=== PATIENT | female | born 1995 ===

== ENCOUNTER → 2023-06-30 12:22 | Outpatient (BNVA) | payer OTHER, SELFPAY | PROVIDERS: Visit Provider Emergency Medicine | DX: S82.432A Displaced oblique fracture of shaft of left fibula, initial encounter for closed fracture (principal); S82.231A Displaced oblique fracture of shaft of right tibia, initial encounter for closed fracture; X58.XXXA Exposure to other specified factors, initial encounter | CPT/HCPCS: 73590; 73610 ==

== ENCOUNTER 2023-07-03 15:46 | Observation (INO) | payer OTHER, SELFPAY ==
[2023-07-02 16:24] VITALS: BMI 31.3
[2023-07-03] VITALS (16 sets, daily range): BP systolic 120–158; BP diastolic 67–102; PULSE 76–110; RESP 16–19; TEMP 36.2–37.2; O2SAT 92–98
--- NOTE | 2023-07-03 | XR_ITS ---
WS: [id number] INTRAOPERATIVE TECHNIQUE: 8 Spot fluoroscopic images for intraoperative purposes. FLUOROSCOPY TIME: 167 seconds CLINICAL INFORMATION: hardware placement COMPARISON: None. FINDINGS: Intramedullary kelly and screw fixation of the tibia with distal tibial fixation screws. Plate and scre w fixation lateral fibula. IMPRESSION: Images obtained for intraoperative purposes.
[2023-07-03] MEDS: sodium chloride 0.9% 1,000 ML 30 ML IV (08:52)
[2023-07-03 08:59] LABS: OR HCG Qualitative Urine Negative (Negative)
--- NOTE | 2023-07-03 09:33 | W.PM.OPSUD ---
Surgery/Procedure H&P Update DATE OF PROCEDURE: July 03, 2023 DATE H&P PERFORMED: 07/02/23 H&P UPDATE INFORMATION: I have reviewed H&P completed within last 30 days, I have examined patient prior to procedure and No changes to prior documentation PLANNED PROCEDURE: Operation Date: 07/03/23 09:50 Proposed Procedures p 13630: intramedullary Nail in Tibia, S82.209A - Unspecified fracture of shaft of unspecified tibia, initial encounter for closed fracture(Left) - [place] [address]: ORIF fibula, S82.409A(Left) - Randolph Garcia DO
[2023-07-03] MEDS: HYDROmorphone 1 mg/mL INJ 1 mL 0.5 MG IVP ×2 (09:49→16:20)
[2023-07-03] MEDS: ceFAZolin 2,000 MG in sodium chloride 0.9% (plus) 50 ML 100 MG IV ×2 (10:01→17:32)
--- NOTE | 2023-07-03 10:07 | ANES.PREANE2 ---
Pre-Anesthetic Assessment Height/Weight: Height 1.75 m Weight 96.162 kg Temp Pulse Resp BP Pulse Ox O2 Del Method 97.7 F 105 H 18 149/90 98 Room Air 07/03/23 08:39 07/03/23 08:39 07/03/23 09:49 07/03/23 08:39 07/03/23 09:49 07/03/23 08:39 Operation Date: 07/03/23 09:50 Proposed Procedures p 87469: intramedullary Nail in Tibia, S82.209A - Unspecified fracture of shaft of unspecified tibia, initial encounter for closed fracture(Left) - [place] [address]: ORIF fibula, S82.409A(Left) - Randolph Garcia DO Familial anesthetic complications: none Was Beta Bev taken within 24 hours: N/A Was Clonidine taken within 24 hours: N/A Last intake: Intake Last Liquid Date 07/02/23 Last Liquid Time 20:00 Last Solid Date 07/02/23 Last Solid Time 20:00 Social No alcohol and No tobacco Exam alert, oriented x 3, clear to auscultation bilaterally and regular rate & rhythm Airway Submandibular: within normal limits Cervical ROM: within normal limits Mallampati: Class II Dentition: full Metabolic Morbid Obesity Neuropsych Anxiety Anesthetic Plan ASA status: 2 Anesthesia: General and Regional (specify below) (Discussed pop blk--surgeon did not want) Medications/Allergies Home Medications Medication Instructions Recorded Confirmed Last Taken Type escitalopram oxalate 10 mg tablet 10 mg PO DAILY 06/30/23 07/02/23 07/03/23 06:00 History hydrocodone 5 mg-acetaminophen 325 1 tab PO Q6H PRN pain 7 days #28 06/30/23 07/02/23 07/03/23 02:00 Rx mg tablet tabs norethindrone 1 mg-ethinyl 1 tab PO DAILY 06/30/23 07/02/23 07/02/23 History estradiol 20 mcg (21)-iron 75 mg (7) tablet (11/30 ()) noemi #1 ea 07/02/23 07/02/23 Unknown Rx Allergies Allergy/AdvReac Type Severity Reaction Status Date / Time No Known Allergies Allergy Verified 07/03/23 08:32 Current Medications Generic Name Dose Route Start Last Admin Trade Name Freq PRN Reason Stop Dose Admin Hydromorphone HCl 0.5 mg 07/03/23 08:14 07/03/23 09:49 Hydromorphone 1 Mg/Ml Inj 1 Ml IVP 0.5 mg ONCE PRN Administration For preop pain/anxiety Sodium Chloride 1,000 mls @ 30 mls/hr 07/03/23 08:15 07/03/23 08:52 Sodium Chloride 0.9% IV 07/04/23 08:14 30 mls/hr .Q24H ALONSO Administration Data Anesthesia Cardiac Studies: No Data to Display
--- NOTE | 2023-07-03 12:01 | PM.OP ---
Operative Report Date of procedure: July 03, 2023 Pre-op diagnosis: 1. Right tibia shaft fracture 2. Right distal fibula Post-op diagnosis: same Procedure done: 1. IM nail Right tibia 2. ORIF right distal fibula Surgeon: Randolph Garcia Taxi Proprietor: Manolo Roque Taxi Proprietor: The ophthalmology surgical technician, Manolo Roque, GREG was needed for his expertise with fracture care. He was important and necessary throughout the procedure to complete in a safe and timely manner. He assisted with patient positioning prepping and draping tissue retraction suctioning of the operative field protection of the critical structures and tissue closure Estimated blood loss (mL): 25 Tourniquet time (min): 25 Procedure: 1. IM nail Right tibia 2. ORIF right distal fibula Patient brought the operative suite after undergoing anesthesia was placed in the supine position. Eyes appear well-padded. Patient's right leg was up on a bone foam ramp. Patient leg was prepped and draped normal sterile fashion. Skin incision made proximal to the patella. The quad tendon was split in the opening awl was inserted down through the knee joint down into the starting point for the tibia. A starting pin was inserted in the top of the tibia. The opening reamer was inserted to the top of the tibia. Ball-tipped guidewire was then passed then the fracture was reduced and the tip of the guidewire was passed all the way down to the distal tibia. AP lateral fluoroscopy ensured that the distal tip of the ball tip was in the center position of the distal tibia on AP and lateral fluoroscopy. And that the fracture was reduced. The tibial canal was then reamed to 11-1/2 mm. The canal length was measured it was measured to be roughly 3 to 30 mm 3 and 30 mm x 10 mm nail was inserted 2 locking screws were placed proximally 2 locking screws were placed distally once the nail was locked into position attention was then brought to the fibula. Esmarch was used and the tourniquet was brought up. The skin incision was made on the lateral fibula. The fracture was identified fracture was reduced the distal fibula and then in a anterior to posterior screw lag screw was placed. And then a 7 hole one third tubular plate was placed with 3 screws proximal and 2 screws distal. AP and lateral fluoroscopy ensured that the fibula was reduced and the plate and screws were in good position. AP and lateral fluoroscopy were then used to ensure that the tibia was in good position. As well as the tibial nail. We was then closed in a layered fashion with Vicryl and nylon and osvaldo. Sterile dressings were applied and patient was placed in a posterior splint and transferred to the PACU in stable condition.
--- NOTE | 2023-07-03 13:27 | SUR.PHASEI ---
Addendum entered by Lydia José RN 07/03/23 13:30: this was taken at 1300 Original Note: patient brought in personal prescribed hydrocodone 5-325, one taken after consuming some new crackers and fluids.
--- NOTE | 2023-07-03 14:55 | ANE.PACU2 ---
Inpatient post-anesthesia follow up: Airway intact: Yes Vital signs: Temperature 97.7 F Pulse Rate 77 Respiratory Rate 18 Blood Pressure 131/85 Pulse Oximetry 94 Oxygen Delivery Me thod Room Air Oxygen Flow Rate Fraction of Inspir ed Oxygen Hydration adequate: Yes Nausea and vomiting: No Pain level: 3 Mental status: Baseline
--- NOTE | 2023-07-03 16:18 | SUR.PHASEI ---
16:15 MEDICATED FOR ANKLE PAIN. ROM SENSATION AND GOOD CAP REFILL RIGHT TOES. REPORT GIVEN TO NOE MANTILLA. PT A+0 X 3.
[2023-07-03] MEDS: ondansetron 2 mg/ML SDV 2 mL 4 MG IVP (16:20)
[2023-07-03] MEDS: sodium chloride 0.9% 1,000 ML 80 ML IV (17:32)
[2023-07-03] MEDS: HYDROcodone-acetaminophen 5-325 mg Tablet PO ×2 (18:37→22:54)
[2023-07-04 00:27] VITALS: BP 134/79; PULSE 79; RESP 16; TEMP 36.8; O2SAT 96
[2023-07-04] MEDS: ceFAZolin 2,000 MG in sodium chloride 0.9% (plus) 50 ML 100 MG IV ×2 (02:18→08:21)
[2023-07-04] MEDS: ketorolac 30 mg/mL INJ IVP (02:20)
[2023-07-04] MEDS: HYDROcodone-acetaminophen 5-325 mg Tablet PO ×2 (02:57→08:21)
[2023-07-04] MEDS: sodium chloride 0.9% 1,000 ML 80 ML IV (06:53)
--- NOTE | 2023-07-04 07:04 | PM.PN ---
Subjective Subjective: POD 1 Patient resting comfortably with right lower extremity elevated. Denies any shortness of breath or chest pain. Vitals/I&O/Wt Last Vital Signs Temp 98.3 F 07/04/23 00:27 Pulse 79 07/04/23 00:27 Resp 16 07/04/23 00:27 BP 134/79 07/04/23 00:27 Pulse Ox 96 07/04/23 00:27 O2 Del Method Room Air 07/04/23 00:27 07/03/23 07/04/23 07/04/23 22:59 06:59 14:59 Intake Total 1050 / 1100 1050 / 2150 Output Total 300 / 350 Balance 750 / 750 1050 / 1800 Weight last 48 hrs Weight 212 lb Physical Exam Narrative: Patient is alert and oriented x3 has good general appearance normal mood and affect. Splint intact. Wiggling toes good sensation light touch A&P Assessment and plan (1) Fracture of right tibia and fibula: Mobilizing with walker or crutches nonweightbearing to the right lower extremity. Continue ice elevation at home keeping the splint clean and dry. Encouraged incentive spirometry at home for pulmonary toilet. Discharge home with hydrocodone. We will see her back in the office in 2 weeks time for splint removal staple removal. Encouraged 81 mg aspirin daily for DVT prophylaxis. She will call if she is having problems. Attestations Medical Necessity Statement*: Discharge home later this morning Coding Level of Care Code Acute Code for Chg Fwd Diagnoses Fracture of right tibia and fibula S82.201A; S82.401A
[2023-07-04 09:14] VITALS: BP 121/73; PULSE 104; RESP 17; TEMP 36.7; O2SAT 94
--- NOTE | 2023-07-04 11:05 | PC.CHAP ---
Pastoral Care Encounter/Spiritual Assessment Type of Contact [] Declined vacation sales advisor visit [] Patient/Family/Request visit [] Outpatient visit [] Follow-up visit [] Physician referral [] Code/Alert [s] Routine visit [] Staff referral [] Actively dying [] Patient sleeping [] Family support [] [] Out of room [] Palliative care [] [s] Receiving care in room [] Pre-surgical visit [] Trauma s [] Long length of stay [] ICU visit [] Other: Relational/Emotional Strength [s] Patient feels connected with others/family/visitors/staff [] Distress [] Loneliness/isolation [] Abandonment Spirituality of Patient [s] Person of Brianne [] Attends Mandaeism of their Brianne [s] Believes in Prayer [] Reads Bible or Methodist materials [] There are Spiritual issues to be addressed Trawl [employer] Interventions [s] Prayer [s] Active listening [s] Non-anxious presence [s] Spiritual/emotional support [] Crisis/trauma care [s] Spiritual counseling [] Bereavement support [] Provided bereavement packet [] Provided Bible/devotional materials [] Provided toy/stuffed animal, coloring book to patient or family member [] Provided Communion [] Anointing/[place] [] Salvation [s] Completed spiritual assessment [] Other: Impact on Illness or Injury [] Angry [] Fearful [] Anxious [] Often cries [] Exhaustion [] Unable to work [] Unable to attend protestant [] Unable to walk/stand [] Unable to read [] Unable to drive [] Unable to eat/drink [] Unable to sleep [] Unable to be with family [] Patient intubated [] Other: Summary senior not sure a bout his health waiting doctor beforew going home Time spent with patient 10 mins
[2023-07-04 11:33] VITALS: BP 121/73; PULSE 104; RESP 17; TEMP 36.7; O2SAT 94
--- NOTE | 2023-07-04 12:18 | PC.OT ---
OT EVAL ORDER RECEIVED. PT. IS DISCHARGING HOME TODAY AND PATIENT CLEARED BY NURSING AND PHYSICAL THERAPY WITH NO CONCERNS FOR DISCHARGE. THERAPIST SPOKE WITH PATIENT AND SHE REPORTS NO CONCERNS FOR ADL INDEPENDENCE OR SAFETY. D/C OT ORDER.
== END 2023-07-04 11:35 | disposition home or self-care (01) ==
LOC: MEDSURG 15:46
PROVIDERS: Admitting Provider Orthopaedic Surgery; Visit Provider Orthopaedic Surgery
PROC: (CPT 27759; principal; 2023-07-03 09:50)
PROC: 0QSK04Z Reposition Left Fibula with Internal Fixation Device, Open Approach (ICD-10-PCS; CPT 27828; 2023-07-03 09:50)
DX: S82.201A Unspecified fracture of shaft of right tibia, initial encounter for closed fracture (principal); S82.401A Unspecified fracture of shaft of right fibula, initial encounter for closed fracture; X50.1XXA Overexertion from prolonged static or awkward postures, initial encounter
CPT/HCPCS: 27759; 27792; 73590; 76000; 81025; 84703; 97110; 97161; C1713; G0378; J0690; J1100; J1170; J1885; J2250; J2405; J2704; J3010; J7030

== ENCOUNTER → 2023-07-16 09:09 | Outpatient (BNVA) | payer OTHER, SELFPAY | PROVIDERS: Visit Provider Physician Assistant | DX: S82.201D Unspecified fracture of shaft of right tibia, subsequent encounter for closed fracture with routine healing (principal); S82.401D Unspecified fracture of shaft of right fibula, subsequent encounter for closed fracture with routine healing; X58.XXXD Exposure to other specified factors, subsequent encounter | CPT/HCPCS: 73590 ==

== ENCOUNTER 2023-07-16 15:07 | Outpatient (CLI) | payer OTHER, SELFPAY | END 2023-07-16 15:08 | disposition home or self-care (01) | LOC: SPT 15:08 | PROVIDERS: Visit Provider Physician Assistant | DX: Z46.89 Encounter for fitting and adjustment of other specified devices (principal); S82.201D Unspecified fracture of shaft of right tibia, subsequent encounter for closed fracture with routine healing; S82.401D Unspecified fracture of shaft of right fibula, subsequent encounter for closed fracture with routine healing; X58.XXXD Exposure to other specified factors, subsequent encounter | CPT/HCPCS: 97760; L4361 ==

== ENCOUNTER → 2023-07-30 14:38 | Outpatient (BNVA) | payer OTHER, SELFPAY | PROVIDERS: Visit Provider Physician Assistant | DX: S82.201D Unspecified fracture of shaft of right tibia, subsequent encounter for closed fracture with routine healing (principal); S82.401D Unspecified fracture of shaft of right fibula, subsequent encounter for closed fracture with routine healing; Z96.698 Presence of other orthopedic joint implants; X58.XXXD Exposure to other specified factors, subsequent encounter | CPT/HCPCS: 73590 ==

== ENCOUNTER 2023-08-12 07:37 | Outpatient (RCR) | payer OTHER, SELFPAY | END 2023-09-10 23:59 | disposition home or self-care (01) | LOC: SPT 07:37 | PROVIDERS: PCP Physician Assistant; Visit Provider Physician Assistant | DX: S82.491D Other fracture of shaft of right fibula, subsequent encounter for closed fracture with routine healing (principal); S82.301D Unspecified fracture of lower end of right tibia, subsequent encounter for closed fracture with routine healing; X58.XXXD Exposure to other specified factors, subsequent encounter | CPT/HCPCS: 97110; 97161 ==

== ENCOUNTER 2023-08-28 06:00 | Outpatient (CLI) | payer OTHER, SELFPAY | END 2023-08-28 23:59 | disposition home or self-care (01) | LOC: SPT 10-30 07:30 | PROVIDERS: PCP Physician Assistant; Visit Provider Physician Assistant | DX: Z46.89 Encounter for fitting and adjustment of other specified devices (principal); R53.1 Weakness | CPT/HCPCS: L1902 ==

== ENCOUNTER → 2023-08-28 15:14 | Outpatient (BNVA) | payer OTHER, SELFPAY | PROVIDERS: PCP Physician Assistant; Visit Provider Physician Assistant | DX: S82.201D Unspecified fracture of shaft of right tibia, subsequent encounter for closed fracture with routine healing (principal); S82.401D Unspecified fracture of shaft of right fibula, subsequent encounter for closed fracture with routine healing; X58.XXXD Exposure to other specified factors, subsequent encounter | CPT/HCPCS: 73590 ==

== ENCOUNTER 2023-09-11 06:00 | Outpatient (RCR) | payer OTHER, SELFPAY | END 2023-10-10 23:59 | disposition home or self-care (01) | LOC: SPT 06:00 | PROVIDERS: PCP Physician Assistant; Visit Provider Physician Assistant | DX: Z98.890 Other specified postprocedural states (principal) | CPT/HCPCS: 97110 ==